=== PATIENT | female | born 1980 | race Native Hawaiian/Other Pacific Islander ===

== ENCOUNTER → 2024-03-22 11:53 | Outpatient (CLI) | payer BC, SELFPAY ==
--- NOTE | 2024-03-22 11:56 | DI.US.S_ITS ---
PROCEDURE: US PELVIC COMPLETE INDICATIONS: HEAVY MENSTRUAL BLEEDING TECHNIQUE: Real-time scanning was performed of the pelvic organs, with image documentation. Additional endovaginal scanning was necessary due to incomplete visualization of the adnexal and endometrial structures by transabdominal scanning. COMPARISON: None. FINDINGS: Uterus: Uterus is anteverted and normal in size at 9.1 x 4.9 x 4.4 cm. The myometrium is homogeneous. The endometrium measures 21 mm combined thickness. Mildly heterogeneous Ovaries: The right ovary measures 4.2 x 2.7 x 2.7 cm, with a calculated ovarian volume of 16 cc. The left ovary measures 4.3 x 1.7 x 2.0 cm, with a calculated ovarian volume of 7.4 cc. There is a left ovarian follicle with solid, peripheral, avascular debris present, with angulated margins, measuring 1.4 x 1.3 x 1.1 centimeter. Otherwise, the ovaries have a normal sonographic appearance. Less than 12 follicles can be seen in each ovary. No adnexal masses are seen. Other: No pathologic free abdominal or pelvic fluid. IMPRESSION: Endometrium is thickened, measuring 21 millimeters. Suspected left ovarian hemorrhagic follicle measuring 1.4 x 1.3 x 1.1 centimeter, given a solid component with angulated margins. Recommend 6-12 week follow-up to ensure resolution, in the setting of family history of ovarian cancer. We strive to produce accurate, complete, and clear reports of imaging services. To assist us in improving patient care, this report was composed using standard report templates and voice recognition software. Therefore, it may contain abnormal punctuation, insertions and/or omissions. Occasional wrong-word or sound-alike substitutions may occur. Though we review the report and make efforts to correct it, we do recommend that the report be read carefully in proper context to recognize any text inaccuracies. Dictated by: Akshat Pond M.D. on 03/22/2024 at 13:43 Approved by: Akshat Pond M.D. on 03/22/2024 at 13:47
== END ==
LOC: US 11:55
PROVIDERS: PCP Family Medicine; Referring Provider Family Medicine; Visit Provider Family Medicine
DX: N93.9 Abnormal uterine and vaginal bleeding, unspecified (principal); R93.89 Abnormal findings on diagnostic imaging of other specified body structures; Z80.41 Family history of malignant neoplasm of ovary
CPT/HCPCS: 76830; 76856

== ENCOUNTER → 2024-05-17 09:08 | Outpatient (CLI) | payer OTHER, SELFPAY ==
--- NOTE | 2024-05-17 09:10 | DI.US.S_ITS ---
PROCEDURE: US PELVIC COMPLETE INDICATIONS: FOLLOW UP LEFT OVARY CYST. FAMILY HISTORY OF OVARIAN CANCER. TECHNIQUE: Real-time scanning was performed of the pelvic organs, with image documentation. Additional endovaginal scanning was necessary due to incomplete visualization of the adnexal and endometrial structures by transabdominal scanning. COMPARISON: [facility], , US PELVIC COMPLETE, 03/22/2024, 12:12. FINDINGS: Uterus: Uterus is anteverted and normal in size at 7.2 x 4.4 x 4.4 cm. The myometrium is slightly heterogeneous without dominant mass. The endometrium measures 13.5 mm combined thickness. Several tiny nabothian cysts present in the cervix. Normal vascularity in the cervix and uterus. Ovaries: The right ovary measures 3.2 x 1.9 x 1.9 cm, with a calculated ovarian volume of 5.9 cc. The left ovary measures 3.2 x 1.4 x 1.6 cm, with a calculated ovarian volume of 2.9 cc. A cystic mass arising from the left ovary is again noted measuring 1.2 x 1.2 x 1.3 cm. It demonstrates mural nodularity, at least three discrete papillary projections, and a thickened septation. No vascularity within the nodular components. The right ovary contains an involuting hemorrhagic cyst measuring 1.1 cm. Other: No pathologic free abdominal or pelvic fluid. IMPRESSION: Stable appearing 1.3 cm left adnexal/ovarian cyst with an ultrasound O-RADS score of four, intermediate risk of malignancy. Gynecologic oncology recommended. We strive to produce accurate, complete, and clear reports of imaging services. To assist us in improving patient care, this report was composed using standard report templates and voice recognition software. Therefore, it may contain abnormal punctuation, insertions and/or omissions. Occasional wrong-word or sound-alike substitutions may occur. Though we review the report and make efforts to correct it, we do recommend that the report be read carefully in proper context to recognize any text inaccuracies. Dictated by: Kelly Mendoza M.D. on 05/17/2024 at 13:24 Approved by: Kelly Mendoza M.D. on 05/17/2024 at 13:41
== END ==
PROVIDERS: PCP Family Medicine; Referring Provider Family Medicine; Visit Provider Family Medicine
DX: N83.202 Unspecified ovarian cyst, left side (principal); Z80.41 Family history of malignant neoplasm of ovary
CPT/HCPCS: 76830; 76856

== ENCOUNTER → 2024-11-14 10:29 | Outpatient (CLI) | payer OTHER, SELFPAY ==
--- NOTE | 2024-11-14 10:30 | DI.US.S_ITS ---
PROCEDURE: US OB <= 14 WEEKS FETUS INDICATIONS: BLEEDING IN FIRST TRIMESTER OUTSIDE/PRIOR DATING DATA: Last menstrual period (LMP): 09/19/2024 LMP-based estimated date of delivery (NICOLE): 06/26/2025. TECHNIQUE: Real-time scanning was performed of the fetus and maternal pelvic organs, with image documentation. Endovaginal scanning was also performed to better visualize the gestational sac and maternal ovaries. COMPARISON: None. FINDINGS: Gestational sac-like fluid collection: Irregular gestational sac-like fluid collection with mean diameter of 1.8 cm corresponding to 6 weeks 5 days. No definite pole. Possibly 2 small yolk sacs. Small perigestational sac bleed site 3.3 x 2.4 x 0.4 cm Maternal organs: Left corpus luteal cyst. IMPRESSION: Irregular intrauterine gestational sac-like fluid collection with mean sac diameter of 1.8 cm corresponding to 6 weeks 5 days. No definitive pole is seen and possibly 2 small yolk sacs. Findings suspicious for, but not diagnostic of failure. Consider short-term follow-up ultrasound. We strive to produce accurate, complete, and clear reports of imaging services. To assist us in improving patient care, this report was composed using standard report templates and voice recognition software. Therefore, it may contain abnormal punctuation, insertions and/or omissions. Occasional wrong-word or sound-alike substitutions may occur. Though we review the report and make efforts to correct it, we do recommend that the report be read carefully in proper context to recognize any text inaccuracies. Dictated by: Kole BISWAS Interpreted: Akshat Pond MD on 11/14/2024 at 14:44 Transcribed by: JOSE RAMON on 11/14/2024 at 14:51 Approved by: Akshat Pond M.D. on 11/19/2024 at 8:26
== END ==
PROVIDERS: PCP Family Medicine; Referring Provider Family Medicine; Visit Provider Family Medicine
DX: O26.851 Spotting complicating pregnancy, first trimester (principal); O34.81 Maternal care for other abnormalities of pelvic organs, first trimester; N83.12 Corpus luteum cyst of left ovary; Z3A.01 Less than 8 weeks gestation of pregnancy
CPT/HCPCS: 76801

== ENCOUNTER → 2024-11-27 10:33 | Outpatient (CLI) | payer OTHER, SELFPAY ==
--- NOTE | 2024-11-27 10:34 | DI.US.S_ITS ---
PROCEDURE: US OB <= 14 WEEKS FETUS INDICATIONS: DATING/VIABILITY OUTSIDE/PRIOR DATING DATA: Last menstrual period (LMP): 09/19/2024. LMP-based estimated date of delivery (NICOLE): 06/26/2025. TECHNIQUE: Real-time scanning was performed of the fetus and maternal pelvic organs, with image documentation. Endovaginal scanning was also performed to better visualize the fetus and maternal ovaries. COMPARISON: [facility], , OB <= 14 WEEKS FETUS, 11/14/2024, 10:48. FINDINGS: Embryo: A possible pole is seen with crown-rump length measuring 1.4 cm, consistent with 7 weeks and 5 days. Heart rate: Not detected Two abnormal shape yolk sacs are seen. Probable perigestational bleed measuring 5.6 x 2.4 x 1.5 cm. Maternal organs: Ovaries are within normal limits. IMPRESSION: 1. Possible pole consistent with 7 weeks and 5 days with no heart rate. Findings are diagnostic of early loss. 2. Perigestational bleed measuring up to 5.6 cm. We strive to produce accurate, complete, and clear reports of imaging services. To assist us in improving patient care, this report was composed using standard report templates and voice recognition software. Therefore, it may contain abnormal punctuation, insertions and/or omissions. Occasional wrong-word or sound-alike substitutions may occur. Though we review the report and make efforts to correct it, we do recommend that the report be read carefully in proper context to recognize any text inaccuracies. Dictated by: Indra Christianson M.D. on 11/27/2024 at 13:20 Approved by: Indra Christianson M.D. on 11/27/2024 at 13:23
== END ==
PROVIDERS: PCP Family Medicine; Referring Provider Family Medicine; Visit Provider Advanced Practice Midwife
DX: O36.80X0 Pregnancy with inconclusive fetal viability, not applicable or unspecified (principal)
CPT/HCPCS: 76801; 76817